=== PATIENT | female | born 1950 ===

== ENCOUNTER 2023-04-19 12:57 | Inpatient (IN) | payer BC, MEDICARE ==
[2023-04-19] MEDS ORDERED: cloNIDine 0.1 MG TAB ONE (13:56)
[2023-04-19 14:15] LABS: #Basophils 0.1 10x3/uL (0.0-0.2); #Eosinphils 0.1 10x3/uL (0.0-0.5); #Monocytes 0.5 10x3/uL (0.0-1.1); #Neutrophils 4.7 10x3/uL (1.5-8.4); %Basophils 0.7 % (0.0-2.0); %Eosinophils 1.7 % (0.0-6.0); %Lymphocytes 23.2 % (18.0-47.0); %Monocytes 7.5 % (0.0-10.0); %Neutrophils 66.8 % (40.0-75.0); Hematocrit 42.5 % (34.9-44.5); Hemoglobin 13.9 g/dL (12.0-15.5); Mean Corpuscular HGB CONC 32.7 g/dL (32.0-36.0); Mean Corpuscular Hemoglobin 29.6 pg (27.0-33.0); Mean Corpuscular Volume 90.6 fl (81.6-98.3); Mean Platelet Volume 9.8 fl (7.4-10.4); Platelet Count 207 10x3/uL (150-450); RBC Distribution Width 14.6 % (11.5-14.5); Red Blood Cell (RBC) Count 4.69 10x6/uL (3.90-5.03)
[2023-04-19] MEDS ORDERED: Ipratropium/Albuterol 3 ML NEB ONE (14:27)
[2023-04-19 14:31] LABS: ALT (SGPT) 31 U/L (8-55); AST (SGOT) 28 U/L (5-34); Alkaline Phosphatase 131 U/L (40-110); Anion Gap 16 mmol/L (10-20); BUN (Urea Nitrogen) 11 mg/dL (9.8-20.1); Bilirubin, Total 0.8 mg/dL (0.2-1.2); Calc. Creatinine Clearance 0 mL/min (70-130); Carbon Dioxide 22 mmol/L (23-31); Chloride 106 mmol/L (98-107); Estimated GFR 64; Globulin 3.1 g/dL (2.4-3.5); Glucose 199 mg/dL (83-110); Potassium 3.7 mmol/L (3.5-5.1); Protein, Total 6.1 g/dL (5.8-8.1); Sodium 140 mmol/L (136-145)
[2023-04-19 14:35] LABS: Troponin I 0.031 ng/mL (< 0.028)
[2023-04-19] MEDS ORDERED: Furosemide 40 MG/4 ML VIAL ONE (15:30)
[2023-04-19] MEDS ORDERED: Aspirin Chewable 81 MG TAB ONE (15:33)
[2023-04-19 15:46] LABS: Bilirubin Neg (Negative); Blood, Urine 50 (Negative); Clarity Clear (Clear); Glucose, Urine (Dipstick) 100 mg/dL (Negative); Ketone, Urine Negative (Negative); Leukocyte Negative (Negative); Nitrite Negative (Negative); Protein, Urine (Dipstick) 500 mg/dl (Neg-Trace); Specific Gravity, Urine 1.015 (1.005-1.030); Urobilinogen Normal mg/dL (Less than 2)
[2023-04-19] MEDS ORDERED: Losartan 50 MG TAB PO SCH (16:00)
[2023-04-19 17:14] LABS: Bacteria/HPF 2+ HPF (None Seen); CAUTI Indications for Culture Fever or rigors; RBC/HPF 0-3 HPF (0-3); Transitional Epithelial 0-3 HPF (None Seen); WBC/HPF 0-3 HPF (0-3)
[2023-04-19 17:15] LABS: Epithelial Cast 0-3 LPF (None Seen)
[2023-04-19 17:16] LABS: Urine Culture Reflex No No
[2023-04-19] MEDS ORDERED: Ondansetron PF 4 MG/2 ML Vial IVP PRN (17:22)
[2023-04-19] MEDS ORDERED: Glucagon 1 MG/ML KIT IM PRN (17:54)
[2023-04-19] MEDS ORDERED: Dextrose 50% Abboject 50 ML SYRINGE SLOW IVP PRN (17:54)
[2023-04-19] MEDS ORDERED: Dextrose 5% in Water 1,000 ML IV PRN (17:54)
[2023-04-19 20:32] VITALS: BMI 47.0
[2023-04-19] MEDS: HumaLOG 300 UNITS/3 ML VIAL SC PRN (23:01)
[2023-04-19] MEDS: hydrALAZINE 20 MG/ML VIAL SLOW IVP PRN (23:02)
[2023-04-20] MEDS ORDERED: Benzonatate 100 MG CAP PO SCH (00:45)
[2023-04-20] MEDS ORDERED: ALPRAZolam 0.5 MG TAB PO SCH ×2 (00:45→21:15)
[2023-04-20] MEDS: Acetaminophen 325 MG TAB PO PRN ×4 (01:00→20:03)
[2023-04-20 04:12] LABS: #Basophils 0.1 10x3/uL (0.0-0.2); #Eosinphils 0.2 10x3/uL (0.0-0.5); #Monocytes 0.8 10x3/uL (0.0-1.1); #Neutrophils 5.5 10x3/uL (1.5-8.4); %Basophils 0.7 % (0.0-2.0); %Lymphocytes 27.4 % (18.0-47.0); %Monocytes 8.9 % (0.0-10.0); %Neutrophils 60.8 % (40.0-75.0); Hematocrit 40.7 % (34.9-44.5); Hemoglobin 13.6 g/dL (12.0-15.5); Mean Corpuscular HGB CONC 33.4 g/dL (32.0-36.0); Mean Corpuscular Volume 89.8 fl (81.6-98.3); Mean Platelet Volume 10.8 fl (7.4-10.4); Platelet Count 208 10x3/uL (150-450); RBC Distribution Width 14.5 % (11.5-14.5); Red Blood Cell (RBC) Count 4.53 10x6/uL (3.90-5.03); White Blood Cell (WBC) Count 9.1 10x3/uL (3.5-10.5)
[2023-04-20 04:21] LABS: Anion Gap 12 mmol/L (10-20); BUN (Urea Nitrogen) 10 mg/dL (9.8-20.1); Calc. Creatinine Clearance 96 mL/min (70-130); Calcium 8.9 mg/dL (7.8-10.44); Carbon Dioxide 28 mmol/L (23-31); Chloride 104 mmol/L (98-107); Estimated GFR 68; Glucose 127 mg/dL (83-110); Potassium 2.8 mmol/L (3.5-5.1); Sodium 141 mmol/L (136-145)
[2023-04-20] MEDS: hydrALAZINE 20 MG/ML VIAL SLOW IVP PRN ×3 (05:02→20:19)
[2023-04-20] MEDS ORDERED: Potassium Chloride 20 MEQ TAB PO SCH (08:30)
[2023-04-20] MEDS ORDERED: FLU VACC QS2023(65UP)/MF59C/PF 60 MCG/0.5 ML SYRINGE IM ONE (09:00)
[2023-04-20] MEDS: Magnesium Oxide 400 MG TAB PO SCH (09:25)
[2023-04-20 09:52] LABS: Troponin I 0.073 ng/mL (< 0.028)
[2023-04-20] MEDS: HumaLOG 300 UNITS/3 ML VIAL SC PRN ×2 (12:33→16:42)
[2023-04-20] MEDS ORDERED: Doxycycline 100 MG CAP PO SCH (14:00)
[2023-04-20] MEDS: Doxycycline 100 MG CAP PO SCH (20:02)
[2023-04-20] MEDS ORDERED: Pregabalin 50 MG CAP PO SCH (21:00)
[2023-04-21] MEDS ORDERED: traZODone HCl 50 MG TAB PO SCH (00:45)
[2023-04-21] MEDS: Acetaminophen 325 MG TAB PO PRN ×3 (03:48→20:42)
[2023-04-21] MEDS: Benzonatate 100 MG CAP PO PRN ×2 (03:48→08:34)
[2023-04-21 03:59] LABS: #Monocytes 0.5 10x3/uL (0.0-1.1); #Neutrophils 9.4 10x3/uL (1.5-8.4); %Basophils 0.4 % (0.0-2.0); %Lymphocytes 8.5 % (18.0-47.0); %Monocytes 4.4 % (0.0-10.0); %Neutrophils 86.2 % (40.0-75.0); Hematocrit 44.8 % (34.9-44.5); Hemoglobin 14.9 g/dL (12.0-15.5); Mean Corpuscular HGB CONC 33.3 g/dL (32.0-36.0); Mean Corpuscular Hemoglobin 30.8 pg (27.0-33.0); Mean Corpuscular Volume 92.8 fl (81.6-98.3); Mean Platelet Volume 10.3 fl (7.4-10.4); Platelet Count 207 10x3/uL (150-450); RBC Distribution Width 14.6 % (11.5-14.5); Red Blood Cell (RBC) Count 4.83 10x6/uL (3.90-5.03); White Blood Cell (WBC) Count 10.9 10x3/uL (3.5-10.5)
[2023-04-21] MEDS ORDERED: hydrALAZINE 25 MG TAB PO SCH (05:00)
[2023-04-21 06:40] LABS: Anion Gap 16 mmol/L (10-20); BUN (Urea Nitrogen) 16 mg/dL (9.8-20.1); Calc. Creatinine Clearance 80 mL/min (70-130); Calcium 9.3 mg/dL (7.8-10.44); Carbon Dioxide 24 mmol/L (23-31); Chloride 102 mmol/L (98-107); Estimated GFR 56; Glucose 277 mg/dL (83-110); Potassium 4.3 mmol/L (3.5-5.1); Sodium 138 mmol/L (136-145)
[2023-04-21] MEDS: HumaLOG 300 UNITS/3 ML VIAL SC PRN ×4 (06:42→16:50)
[2023-04-21] MEDS: Doxycycline 100 MG CAP PO SCH ×2 (08:33→20:41)
[2023-04-21] MEDS: Magnesium Oxide 400 MG TAB PO SCH (08:34)
[2023-04-21] MEDS ORDERED: Furosemide 40 MG TAB PO SCH (09:45)
[2023-04-21] MEDS ORDERED: Amlodipine 5 mg/Benazepril 10 mg CAP PO SCH (09:45)
[2023-04-21] MEDS ORDERED: Lantus 1000 UNITS/10 ML VIAL SC SCH (09:45)
[2023-04-21] MEDS ORDERED: Lisinopril 10 MG TAB PO SCH (10:15)
[2023-04-21] MEDS ORDERED: Amlodipine 5 MG TAB PO SCH (10:15)
[2023-04-21] MEDS: hydrALAZINE 20 MG/ML VIAL SLOW IVP PRN (12:04)
[2023-04-21] MEDS ORDERED: guaiFENesin ER 600 MG TAB PO SCH (14:00)
[2023-04-21] MEDS: guaiFENesin ER 600 MG TAB PO SCH (20:41)
[2023-04-21] MEDS: Pregabalin 50 MG CAP PO SCH (20:42)
[2023-04-21] MEDS ORDERED: ALPRAZolam 0.5 MG TAB PO SCH (20:45)
[2023-04-21] MEDS ORDERED: Pregabalin 50 MG CAP PO SCH (21:00)
[2023-04-22] MEDS: Benzonatate 100 MG CAP PO PRN ×2 (02:33→21:55)
[2023-04-22 04:43] LABS: #Basophils 0.1 10x3/uL (0.0-0.2); #Eosinphils 0.1 10x3/uL (0.0-0.5); #Monocytes 1.2 10x3/uL (0.0-1.1); #Neutrophils 9.5 10x3/uL (1.5-8.4); %Basophils 0.5 % (0.0-2.0); %Eosinophils 1.1 % (0.0-6.0); %Lymphocytes 14.5 % (18.0-47.0); %Monocytes 9.4 % (0.0-10.0); %Neutrophils 74.1 % (40.0-75.0); Hematocrit 43.7 % (34.9-44.5); Hemoglobin 14.3 g/dL (12.0-15.5); Mean Corpuscular HGB CONC 32.7 g/dL (32.0-36.0); Mean Corpuscular Hemoglobin 30.3 pg (27.0-33.0); Mean Corpuscular Volume 92.6 fl (81.6-98.3); Mean Platelet Volume 10.5 fl (7.4-10.4); Platelet Count 211 10x3/uL (150-450); RBC Distribution Width 14.7 % (11.5-14.5); Red Blood Cell (RBC) Count 4.72 10x6/uL (3.90-5.03); White Blood Cell (WBC) Count 12.8 10x3/uL (3.5-10.5)
[2023-04-22 04:46] LABS: Anion Gap 15 mmol/L (10-20); BUN (Urea Nitrogen) 20 mg/dL (9.8-20.1); Calc. Creatinine Clearance 73 mL/min (70-130); Calcium 9.7 mg/dL (7.8-10.44); Carbon Dioxide 26 mmol/L (23-31); Chloride 98 mmol/L (98-107); Estimated GFR 49; Glucose 280 mg/dL (83-110); Sodium 135 mmol/L (136-145)
[2023-04-22] MEDS: HumaLOG 300 UNITS/3 ML VIAL SC PRN (05:44)
[2023-04-22] MEDS ORDERED: Amlodipine 5 mg/Benazepril 10 mg CAP PO SCH (09:00)
[2023-04-22] MEDS ORDERED: Lantus 1000 UNITS/10 ML VIAL SC SCH ×2 (09:00→09:45)
[2023-04-22] MEDS: Furosemide 40 MG TAB PO SCH (09:17)
[2023-04-22] MEDS: Magnesium Oxide 400 MG TAB PO SCH (09:18)
[2023-04-22] MEDS: guaiFENesin ER 600 MG TAB PO SCH (09:18)
[2023-04-22] MEDS: Amlodipine 5 MG TAB PO SCH (09:18)
[2023-04-22] MEDS: Lisinopril 10 MG TAB PO SCH (09:18)
[2023-04-22] MEDS: Doxycycline 100 MG CAP PO SCH ×2 (09:18→21:55)
[2023-04-22] MEDS ORDERED: guaiFENesin/DM ER PO SCH (16:00)
[2023-04-22] MEDS: Pregabalin 50 MG CAP PO SCH (21:54)
[2023-04-22] MEDS: Acetaminophen 325 MG TAB PO PRN (21:55)
[2023-04-22] MEDS ORDERED: ALPRAZolam 0.5 MG TAB PO SCH (22:15)
[2023-04-22] MEDS: hydrALAZINE 20 MG/ML VIAL SLOW IVP PRN (22:48)
[2023-04-23] MEDS: Acetaminophen 325 MG TAB PO PRN ×2 (02:04→23:26)
[2023-04-23] MEDS ORDERED: traZODone HCl 50 MG TAB PO SCH (03:00)
[2023-04-23 05:41] LABS: #Basophils 0.1 10x3/uL (0.0-0.2); #Eosinphils 0.1 10x3/uL (0.0-0.5); #Monocytes 1.1 10x3/uL (0.0-1.1); #Neutrophils 8.5 10x3/uL (1.5-8.4); %Basophils 0.4 % (0.0-2.0); %Lymphocytes 12.8 % (18.0-47.0); %Neutrophils 75.4 % (40.0-75.0); Mean Corpuscular HGB CONC 33.3 g/dL (32.0-36.0); Mean Corpuscular Volume 89.9 fl (81.6-98.3); Mean Platelet Volume 10.7 fl (7.4-10.4); Platelet Count 196 10x3/uL (150-450); RBC Distribution Width 14.5 % (11.5-14.5); Red Blood Cell (RBC) Count 4.67 10x6/uL (3.90-5.03); White Blood Cell (WBC) Count 11.3 10x3/uL (3.5-10.5)
[2023-04-23 05:56] LABS: Anion Gap 15 mmol/L (10-20); BUN (Urea Nitrogen) 24 mg/dL (9.8-20.1); Calc. Creatinine Clearance 80 mL/min (70-130); Calcium 9.7 mg/dL (7.8-10.44); Carbon Dioxide 26 mmol/L (23-31); Chloride 97 mmol/L (98-107); Estimated GFR 56; Glucose 295 mg/dL (83-110); Potassium 3.8 mmol/L (3.5-5.1); Sodium 134 mmol/L (136-145)
[2023-04-23] MEDS: HumaLOG 300 UNITS/3 ML VIAL SC PRN ×3 (06:34→23:39)
[2023-04-23] MEDS ORDERED: Lantus 1000 UNITS/10 ML VIAL SC SCH (09:00)
[2023-04-23] MEDS: Furosemide 40 MG TAB PO SCH (09:26)
[2023-04-23] MEDS: Lisinopril 10 MG TAB PO SCH (09:26)
[2023-04-23] MEDS: Magnesium Oxide 400 MG TAB PO SCH (09:26)
[2023-04-23] MEDS: Doxycycline 100 MG CAP PO SCH ×2 (09:27→23:25)
[2023-04-23] MEDS: Amlodipine 5 MG TAB PO SCH (09:27)
[2023-04-23] MEDS: guaiFENesin/DM ER PO SCH ×2 (09:33→23:25)
[2023-04-23] MEDS: HumaLOG 300 UNITS/3 ML VIAL SC SCH ×2 (12:02→16:36)
[2023-04-23] MEDS: hydrALAZINE 20 MG/ML VIAL SLOW IVP PRN (16:37)
[2023-04-23] MEDS: Lantus 1000 UNITS/10 ML VIAL SC SCH (23:23)
[2023-04-23] MEDS: Benzonatate 100 MG CAP PO PRN (23:24)
[2023-04-23] MEDS: Pregabalin 50 MG CAP PO SCH (23:24)
[2023-04-24 04:01] LABS: #Basophils 0.1 10x3/uL (0.0-0.2); #Eosinphils 0.3 10x3/uL (0.0-0.5); #Monocytes 1.1 10x3/uL (0.0-1.1); #Neutrophils 5.9 10x3/uL (1.5-8.4); %Basophils 0.8 % (0.0-2.0); %Eosinophils 3.3 % (0.0-6.0); %Lymphocytes 24.5 % (18.0-47.0); %Monocytes 10.9 % (0.0-10.0); %Neutrophils 60.1 % (40.0-75.0); Hematocrit 43.1 % (34.9-44.5); Hemoglobin 14.2 g/dL (12.0-15.5); Mean Corpuscular HGB CONC 32.9 g/dL (32.0-36.0); Mean Corpuscular Hemoglobin 29.6 pg (27.0-33.0); Mean Platelet Volume 10.2 fl (7.4-10.4); Platelet Count 229 10x3/uL (150-450); RBC Distribution Width 14.2 % (11.5-14.5); Red Blood Cell (RBC) Count 4.79 10x6/uL (3.90-5.03); White Blood Cell (WBC) Count 9.8 10x3/uL (3.5-10.5)
[2023-04-24 04:10] LABS: Anion Gap 13 mmol/L (10-20); BUN (Urea Nitrogen) 28 mg/dL (9.8-20.1); Calc. Creatinine Clearance 73 mL/min (70-130); Carbon Dioxide 30 mmol/L (23-31); Chloride 97 mmol/L (98-107); Estimated GFR 49; Glucose 165 mg/dL (83-110); Potassium 4.1 mmol/L (3.5-5.1); Sodium 136 mmol/L (136-145)
[2023-04-24] MEDS ORDERED: Lactated Ringer's 500 ML IV SCH (08:45)
[2023-04-24] MEDS: Lisinopril 10 MG TAB PO SCH (09:19)
[2023-04-24] MEDS: Amlodipine 5 MG TAB PO SCH (09:20)
[2023-04-24] MEDS: Magnesium Oxide 400 MG TAB PO SCH (09:21)
[2023-04-24] MEDS: guaiFENesin/DM ER PO SCH (09:21)
[2023-04-24] MEDS: Doxycycline 100 MG CAP PO SCH (09:21)
[2023-04-24] MEDS: Furosemide 40 MG TAB PO SCH (09:21)
[2023-04-24] MEDS: HumaLOG 300 UNITS/3 ML VIAL SC SCH (09:22)
[2023-04-24] MEDS: Lantus 1000 UNITS/10 ML VIAL SC SCH (09:22)
[2023-04-24 14:01] VITALS: TEMP 98.2
[2023-04-24 14:09] VITALS: BP 172/80
== END 2023-04-24 14:06 | DRG 281 ==
LOC: CSHERS 12:57 → SUATTDRO 12:57 → CSHTELE 16:52
PROVIDERS: ADMIT Internal Medicine; ATTEND Internal Medicine
DX: I11.0 Hypertensive heart disease with heart failure (principal); I21.A1 Myocardial infarction type 2; E66.2 Morbid (severe) obesity with alveolar hypoventilation; Z68.42 Body mass index [BMI] 45.0-49.9, adult; Z88.0 Allergy status to penicillin; Z88.1 Allergy status to other antibiotic agents; Z79.84 Long term (current) use of oral hypoglycemic drugs; E78.00 Pure hypercholesterolemia, unspecified; Z79.899 Other long term (current) drug therapy; J32.9 Chronic sinusitis, unspecified; E87.6 Hypokalemia; E11.65 Type 2 diabetes mellitus with hyperglycemia; Z79.4 Long term (current) use of insulin; D72.829 Elevated white blood cell count, unspecified; Z11.52 Encounter for screening for COVID-19
CPT/HCPCS: 36415; 36416; 71045; 80048; 80053; 81001; 83880; 84484; 85025; 87635; 87804; 93005; 93306; 94760; 96374; J0360; J1650; J1815; J1940; J2405; J7120; J7620

== ENCOUNTER 2023-11-09 11:31 | Emergency (ER) | payer BC, MEDICARE ==
[2023-11-09 13:08] LABS: #Basophils 0.07 10x3/uL (0.0-0.2); #Eosinphils 0.06 10x3/uL (0.0-0.5); #Monocytes 0.68 10x3/uL (0.0-1.1); #Neutrophils 9.35 10x3/uL (1.5-8.4); %Basophils 0.5 % (0.0-2.0); %Eosinophils 0.5 % (0.0-6.0); %Lymphocytes 19.5 % (18.0-47.0); %Monocytes 5.3 % (0.0-10.0); %Neutrophils 72.7 % (40.0-75.0); Hematocrit 32.6 % (34.9-44.5); Hemoglobin 10.8 g/dL (12.0-15.5); Mean Corpuscular HGB CONC 33.1 g/dL (32.0-36.0); Mean Corpuscular Hemoglobin 32.9 pg (27.0-33.0); Mean Corpuscular Volume 99.4 fL (81.6-98.3); Mean Platelet Volume 10.1 fL (7.4-10.4); Platelet Count 269 10x3/uL (150-450); RBC Distribution Width 19.7 % (11.5-14.5); Red Blood Cell (RBC) Count 3.28 10x6/uL (3.90-5.03); White Blood Cell (WBC) Count 12.9 10x3/uL (3.5-10.5)
[2023-11-09 13:14] LABS: ALT (SGPT) 35 U/L (8-55); AST (SGOT) 34 U/L (5-34); Albumin 1.4 g/dL (3.4-4.8); Alkaline Phosphatase 179 U/L (40-110); Anion Gap 15 mmol/L (10-20); BUN (Urea Nitrogen) 26 mg/dL (9.8-20.1); Bilirubin, Total 0.4 mg/dL (0.2-1.2); Calc. Creatinine Clearance 0 mL/min (70-130); Calcium 7.7 mg/dL (7.8-10.44); Carbon Dioxide 19 mmol/L (23-31); Chloride 104 mmol/L (98-107); Estimated GFR 49; Globulin 3.2 g/dL (2.4-3.5); Glucose 344 mg/dL (83-110); Potassium 4.2 mmol/L (3.5-5.1); Protein, Total 4.6 g/dL (5.8-8.1); Sodium 134 mmol/L (136-145)
[2023-11-09 15:28] LABS: Bilirubin Neg (Negative); Blood, Urine 150 (Negative); Clarity Cloudy (Clear); Glucose, Urine (Dipstick) >=1000 mg/dL (Negative); Ketone, Urine Negative (Negative); Leukocyte 500 (Negative); Nitrite Negative (Negative); Protein, Urine (Dipstick) 100 mg/dl (Neg-Trace); Urobilinogen Normal mg/dL (Less than 2); pH, Urine 6.5 (5.0-9.0)
[2023-11-09 15:52] LABS: Bacteria/HPF 2+ HPF (None Seen); CAUTI Indications for Culture Pelvic or flank pain; RBC/HPF 21-50 HPF (0-3); Squamous Epithelial 0-3 HPF (0-3); WBC/HPF Greater Than 50 HPF (0-3)
[2023-11-09 15:54] LABS: Urine Culture Reflex Yes Yes
[2023-11-09] MEDS ORDERED: cefTRIAXone (ROCEPHIN) 1 GM VIAL ONE (16:23)
== END 2023-11-09 17:49 | disposition home or self-care (01) ==
LOC: CSHERS 11:31
DX: R19.7 Diarrhea, unspecified (principal); L22 Diaper dermatitis; N39.0 Urinary tract infection, site not specified; I10 Essential (primary) hypertension; E11.9 Type 2 diabetes mellitus without complications
CPT/HCPCS: 36415; 36416; 80053; 81001; 85025; 87086; 93005; 96361; 96365; J0696